=== PATIENT | female | born 2000 | race Caucasian/White ===

== ENCOUNTER 2018-08-01 20:37 | Emergency (ER) | payer BC ==
[~2018-08-01] VITALS: Ht 167.6 cm; Wt 61.4 kg
[2018-08-01 20:43] VITALS: BP 123/78; TEMP 98
[2018-08-01 21:12] VITALS: PULSE 77
[2018-08-01] MEDS ORDERED: CELEXA10 MG PO (21:13)
== END 2018-08-01 21:19 | disposition home or self-care (01) ==
LOC: COL.ER 20:37
DX: S61.211A Laceration without foreign body of left index finger without damage to nail, initial encounter (principal); W26.0XXA Contact with knife, initial encounter; Y92.009 Unspecified place in unspecified non-institutional (private) residence as the place of occurrence of the external cause